=== PATIENT | female | born 1940 | race Caucasian/White ===

== ENCOUNTER 2018-02-08 04:43 | Observation (INO) | payer MEDICARE, BC ==
[~2018-02-08] VITALS: Ht 167.6 cm; Wt 75.3 kg
[2018-02-08] VITALS (8 sets, daily range): BP systolic 99–164; BP diastolic 54–91
--- OUTSIDE RECORDS SUMMARY | 2018-02-08 04:45 | XMS REPORT | Clinical Summary ---
Author Author [facility] Organization [facility] Address Unknown Phone Unavailable Care Team Providers Care Mine Wedge Sawyer Name Role Phone Jose Alegre MD PCP Allergies Active Allergy Reactions Severity Noted Date Comments Latex 12/26/2017 Uajymohz-Ktodfwghtp-Kwtnp Rash Low 12/26/2017 yxin Sulfa (Sulfonamide Anaphylaxis High 12/26/2017 Antibiotics) Current Medications Prescription Sig. Disp. Refills Start End Date Status Date ciprofloxacin HCl 11/04/19 Active (CILOXAN) 0.3 % 18 ophthalmic solution isosorbide mononitrate 10/01/19 Active (IMDUR) 30 MG 24 hr 18 tablet DULoxetine (CYMBALTA) 60 Take 60 mg by mouth Active MG capsule daily. prednisoLONE acetate 11/04/19 Active (PRED FORTE) 1 % 18 ophthalmic suspension tiZANidine (ZANAFLEX) 2 10/01/19 Active MG tablet 18 zolpidem (AMBIEN) 10 mg 12/10/19 Active tablet 18 triamcinolone (KENALOG) 11/19/19 Active 0.1 % ointment 18 HYDROcodone-acetaminophen 12/10/19 Active (NORCO) 10-325 mg per 18 tablet hydrOXYzine (ATARAX) 25 12/10/19 Active MG tablet 18 promethazine (PHENERGAN) 11/12/19 Active 25 MG tablet 18 HYDROMET 5-1.5 mg/5 mL 11/03/19 Active syrup 18 ranitidine (ZANTAC) 300 10/01/19 Active MG tablet 18 PROLENSA 0.07 % 1 12/30/19 Active ophthalmic solution 18 Active Problems No known active problems Encounters Date Type Specialty Care Team Description 01/21/2018 [facility] General Surgery Torrey Knapp MD Encounter 01/21/2018 Procedure Pass General Surgery 01/21/2018 Surgery General Surgery Torrey Knapp MD PHACOEMULSIFICATION, CATARACT, WITH IOL IMPLANTATION RIGHT 01/20/2018 Anesthesia General Surgery Hali Bain MD 12/31/2017 Hospital General Surgery Torrey Knapp MD Encounter 12/31/2017 Procedure Pass General Surgery 12/31/2017 Surgery General Surgery Torrey Knapp MD PHACOEMULSIFICATION, CATARACT, WITH IOL IMPLANTATION LEFT EYE 12/30/2017 Anesthesia General Surgery Hali Bain MD after 02/07/2017 Social History Tobacco Use Types Packs/Day Years Used Date Former Smoker 1 30 Quit: 12/27/1987 Smokeless Tobacco: Never Used Alcohol Use Drinks/Week oz/Week Comments No Sex Assigned at Date Recorded Not on file Last Filed Vital Signs Vital Sign Reading Time Taken Blood Pressure 150/82 01/21/2018 9:00 AM CDT Pulse 78 01/21/2018 9:00 AM CDT Temperature 36.6 C (97.9 F) 01/21/2018 8:47 AM CDT Respiratory Rate 16 01/21/2018 8:47 AM CDT Oxygen Saturation 97% 01/21/2018 9:00 AM CDT Inhaled Oxygen - - Concentration Weight 72.9 kg (160 lb 12.8 oz) 01/21/2018 7:49 AM CDT Height 167.6 cm (5' 6") 12/31/2017 7:17 AM CDT Body Mass Index 25.95 01/21/2018 7:49 AM CDT Plan of Treatment Not on file Implants Implanted Type Area Fisheries Inspector Device Expiration Model / Identifier Date Serial / Lot Lens Iol Asprc Asymet Bicnvx Ant Intraocula Left: Eye ROCKY 2021 SN60WF 190 +19.0d 0deg 6x13mm - [id number] - r [employer] / [id number] Implant INC [id number] Implanted: Qty: 1 on 12/31/2017 by Harjinder / Torrey Knapp MD [id number] Lens Iol Asprc Asymet Bicnvx Ant Intraocula Right: Eye ROCKY 2022 SN60WF 230 +23.0d 0deg 6x13mm - [id number] - r [employer] / [id number] Implant INC [id number] Implanted: Qty: 1 on 01/21/2018 by Trisha / Torrey Knapp MD [id number] Procedures Procedure Name Priority Date/Time Associated Diagnosis Comments PHACOEMULSIFICATION, 01/21/2018 Age-related nuclear CATARACT, WITH IOL 8:00 AM CDT cataract of right eye IMPLANTATION RIGHT Special Needs SN60WF + 23.0 PHACOEMULSIFICATION, 12/31/2017 Age-related nuclear CATARACT, WITH IOL 8:20 AM CDT cataract of left eye IMPLANTATION LEFT EYE Special Needs SN60WF +19.0 after 02/07/2017 Results Not on fileafter 02/07/2017 Insurance Payer Benefit Subscriber ID Type Phone Address Plan / Group MEDICARE MEDICARE xxxxxxxxxx Medicare [place], [place] PART A AND B BCBS BCBS xxxxxxxxxxxxxxx PPO CHOICE PPO/HELENE HENDRICKS PPO
[2018-02-08] MEDS ORDERED: PANTOPRAZOLE 40 MG 10ML VIAL IV STA (04:57)
[2018-02-08] MEDS ORDERED: SODIUM CHLORIDE 0.9% 500ML 500 ML IV ONE (05:00)
[2018-02-08 05:10] LABS: BASOPHILS # (AUTO) 0.1 (0.0-0.1); BASOPHILS % 0.5 % (0.0-1.0); EOSINOPHILS # (AUTO) 0.2 (0.0-0.4); EOSINOPHILS % 1.4 % (0.0-6.0); HEMATOCRIT 33.7 % (34.2-44.1); HEMOGLOBIN 10.8 g/dL (12.0-16.0); LYMPHOCYTES # (AUTO) 2.1 (1.0-3.2); LYMPHOCYTES % 16.4 % (18.0-39.1); MEAN CORPUSCULAR HEMOGLOBIN 28.1 pg (28-32); MEAN CORPUSCULAR VOLUME 87.8 fL (81-99); MONOCYTES # (AUTO) 0.7 (0.2-0.8); MONOCYTES % 5.2 % (4.4-11.3); NEUTROPHILS # (AUTO) 9.6 (2.1-6.9); NEUTROPHILS % 75.8 % (38.7-80.0); PLATELET COUNT 243 x10e3/uL (140-360); RED BLOOD COUNT 3.84 x10e6/uL (3.6-5.1); RED CELL DISTRIBUTION WIDTH 13.2 % (11.7-14.4)
[2018-02-08 05:18] LABS: INR 1.02; PARTIAL THROMBOPLASTIN TIME 26.3 seconds (23.8-35.5); PROTHROMBIN TIME 12.6 seconds (11.9-14.5)
[2018-02-08 05:29] LABS: ALANINE AMINOTRANSFERASE 18 IU/L (0-55); ALBUMIN 3.9 g/dL (3.5-5.0); ALBUMIN/GLOBULIN RATIO 1.1 (0.8-2.0); ALKALINE PHOSPHATASE 114 IU/L (40-150); ANION GAP 15.5 mmol/L (8-16); BLOOD UREA NITROGEN 28 mg/dL (7-26); BUN/CREATININE RATIO 20 (6-25); CALCIUM 9.7 mg/dL (8.4-10.2); CARBON DIOXIDE 25 mmol/L (22-29); CHLORIDE 103 mmol/L (98-107); CREATINE KINASE 67 IU/L (29-168); CREATININE, SERUM 1.41 mg/dL (0.57-1.11); EST GLOMERULAR FILTRATION RATE 36 ML/MIN (60-); GLUCOSE 141 mg/dL (74-118); POTASSIUM 4.5 mmol/L (3.5-5.1); SODIUM 139 mmol/L (136-145)
[2018-02-08 05:49] LABS: THYROID STIMULATING HORMONE 1.076 uIU/mL (0.350-4.940)
[2018-02-08] MEDS ORDERED: TETANUS/DIPHTHERIA TOX ADULT 0.5 ML SYR ONE (06:16)
--- NOTE | 2018-02-08 06:22 | Diagnostic Imaging Report ---
Examination: CT head without contrast Clinical Indication: Fall; head injury.. Technique: Transaxial noncontrast images from the skull base through the vertex were obtained. Sagittal and coronal reformatted images were done. Comparison: None. Findings: Scalp: No abnormalities. Bones: Intact. No fractures. No blastic or lytic lesions. Brain sulci: Appropriate for patient's age. Ventricles: Normal in size and configuration. No hydrocephalus. . Extra-axial space: No abnormalities. Parenchyma: There are mild confluent areas of low-attenuation within subcortical and periventricular white matter, nonspecific, but could represent microvascular ischemic disease. No masses, hemorrhage, or acute or chronic cortical based vascular insults. Suprasellar region: No abnormalities. Craniocervical junction: The foramen magnum is patent. No Chiari one malformation. Incidental findings: Atherosclerotic calcification of the cavernous and supraclinoid internal carotid arteries. Impression: 1. No acute intracranial finding. 2. Mild chronic microvascular ischemic change. Signed by: Dr. Iman Armstrong M.D. on 02/08/2018 6:18 AM
--- NOTE | 2018-02-08 06:23 | Diagnostic Imaging Report ---
Examination: CT CERVICAL SPINE WITHOUT CONTRAST HISTORY:Neck pain. Fall. COMPARISON:None. TECHNIQUE: Multidetector helical axial images were obtained without contrast from the foramen magnum to T1. Coronal and sagittal reformatted images were done. Bone and soft tissue windows were evaluated. FINDINGS: Alignment:Normal alignment and lordosis. Vertebrae: Normal height and density. No acute fracture, infection or neoplasm. Disc space heights: Normal height. Caliber of spinal canal: Developmentally normal. Posterior fossa and craniocervical junction: Foramen magnum patent. No Chiari 1 malformation. Soft tissues: No abnormality. Degenerative changes: Diffuse disc osteophyte complexes at C5-C6 and C6-C7 without canal stenosis. IMPRESSION: No acute abnormalities. Signed by: Dr. Iman Armstrong M.D. on 02/08/2018 6:20 AM
--- NOTE | 2018-02-08 06:23 | Diagnostic Imaging Report ---
PELVIS AP 1-2 VIEWS Comparison: None Clinical history: Fall Findings: No acute fracture or dislocation. Multiple clips which may be related to a hernia repair overlying the lower abdomen. Impression: No acute bony abnormality Signed by: Dr Leanna Mclean MD on 02/08/2018 6:19 AM
--- NOTE | 2018-02-08 06:25 | Diagnostic Imaging Report ---
CHEST SINGLE (PORTABLE), 02/08/2018 4:57 AM Technique: CHEST SINGLE (PORTABLE) Comparison: None available. Clinical history: Fall Findings: Limited by over penetration and portable technique. Normal cardiomediastinal silhouette. Indeterminate 4 cm nodular opacity projects over the left lower lung. No pleural effusion or pneumothorax. No acute displaced fracture. Multiple clips overlie the upper abdomen/lower hemithorax. Impression: Limited by portable technique and overpenetration Indeterminate nodular opacity over the left lower lobe. Recommend follow-up upright PA and lateral. Signed by: Dr Leanna Mclean MD on 02/08/2018 6:22 AM
[2018-02-08] MEDS ORDERED: TETANUS/DIPHTHERIA TOX ADULT 0.5 ML SYR IM ONE (06:30)
[2018-02-08] MEDS ORDERED: LIDOCAINE 1% W/EPINEPHRINE 20 ML VIAL INJ ONE (06:30)
[2018-02-08] MEDS ORDERED: SODIUM CHLORIDE 0.9% 1000ML 1,000 ML IV SCH (06:45)
[2018-02-08] MEDS ORDERED: PROMETHAZINE HC25 M1 PO (06:45)
[2018-02-08] MEDS ORDERED: ZOLPIDEM TARTRA10 MG PO (06:45)
[2018-02-08] MEDS ORDERED: HYDROCODON-ACE1 EAC9 PO (06:45)
[2018-02-08] MEDS ORDERED: ONDANSETRON HCL 4 MG ORAL DISINTEGRATING TAB PO PRN (06:45)
[2018-02-08] MEDS ORDERED: CYMBALTA60 MG PO (06:45)
[2018-02-08] MEDS ORDERED: ISOSORBIDE MONO30 MG PO (06:45)
[2018-02-08] MEDS ORDERED: RANITIDINE HCL300 MG PO (06:45)
[2018-02-08] MEDS ORDERED: HYDROXYZINE HCL25 MG PO (06:45)
[2018-02-08] MEDS ORDERED: TIZANIDINE HCL2 MG PO (06:45)
--- OUTSIDE RECORDS SUMMARY | 2018-02-08 06:54 | XMS REPORT ---
[facility] Address Unknown Phone Unavailable Care Team Providers Care Therapeutic Support Staff Name Role Phone ADAMA CARRIZALES Unavailable Unavailable Problems This patient has no known problems. Allergies, Adverse Reactions, Alerts This patient has no known allergies or adverse reactions. Medications This patient has no known medications. Results Test Description Test Time Test Comments Text Results Atomic Results Result Comments CT BRAIN WO [place] [address] Patient Name: ELOISE LAGUNAS MR #: [id number] : 1940 Age/Sex: 77/F Req #: [id number] Adm Physician: Ordered by: ADAMA CARRIZALES MD Report #: [id number] Location: ER Room/Bed: Procedure: [id number] CT/CT BRAIN WO Exam Date: 02/08/18 Exam Time: 0515 REPORT STATUS: Signed Examination: CT head without contrast Clinical Indication: Fall; head injury.. Technique: Transaxial noncontrast images from the skull base through the vertex were obtained. Sagittal and coronal reformatted images were done. Comparison: None. Findings: Scalp: No abnormalities. Bones: Intact. No fractures. No blastic or lytic lesions. Brain sulci: Appropriate for patient's age. Ventricles: Normal in size and configuration. No hydrocephalus. . Extra-axial space: No abnormalities. Parenchyma: There are mild confluent areas of low- attenuation within subcortical and periventricular white matter, nonspecific, but could represent microvascular ischemic disease. No masses, hemorrhage, or acute or chronic cortical based vascular insults. Suprasellar region: No abnormalities. Craniocervical junction: The foramen magnum is patent. No Chiari one malformation. Incidental findings: Atherosclerotic calcification of the cavernous and supraclinoid internal carotid arteries. Impression: 1. No acute intracranial finding. 2. Mild chronic microvascular ischemic change. Signed by: Dr. Iman Armstrong M.D. on 02/08 6:18 AM Dictated By: IMAN LOUISE MD 7 Transcribed By: ORA on 02/08/18617 COPY TO: ADAMA CARRIZALES MD PELVIS AP 1-2 VIEWS [place] [address] Patient Name: ELOISE LAGUNAS MR #: [id number] : 1940 Age/Sex: 77/F Req # : [id number] Adm Physician: Ordered by: ADAMA CARRIZALES MD Report #: [id number] Location: ER Room/Bed: Procedure: [id number] DX/PELVIS AP 1-2 VIEWS Exam Date: 02/08/18 Exam Time : 0535 REPORT STATUS: Signed PELVIS AP 1-2 VIEWS Comparison: None Clinical history: Fall Findings: No acute fracture or dislocation. Multiple clips which may be related to a hernia repair overlying the lower abdomen. Impression: No acute bony abnormality Signed by: Dr Michael Mclean MD on 02/08/2018 6:19 AM Dictated By: MICHAEL MCLEAN MD 8 Transcribed By: ORA on 02/08/18618 COPY TO: ADAMA CARRIZALES MD CT CERVICAL SPINE WO [place] [address] Patient Name: ELOISE LAGUNAS MR #: [id number] : 1940 Age/Sex: 77/F Req # : [id number] Adm Physician: Ordered by: ADAMA CARRIZALES MD Report #: [id number] Location: ER Room/Bed: Procedure: [id number] CT/CT CERVICAL SPINE WO Exam Date: 02/08/18 Exam Time: 15 REPORT STATUS: Signed Examination: CT CERVICAL SPINE WITHOUT CONTRAST HISTORY:Neck pain. Fall. COMPARISON:None. TECHNIQUE: Multidetector helical axial images were obtained without contrast from the foramen magnum to T1. Coronal and sagittal reformatted images were done. Bone and soft tissue windows were evaluated. FINDINGS: Alignment: Normal alignment and lordosis. Vertebrae: Normal height and density. No acute fracture, infection or neoplasm. Disc space heights: Normal height. Caliber of spinal canal: Developmentally normal. Posterior fossa and craniocervical junction: Foramen magnum patent. No Chiari 1 malformation. Soft tissues: No abnormality. Degenerative changes: Diffuse disc osteophyte complexes at C5-C6 and C6-C7 without canal stenosis. IMPRESSION : No acute abnormalities. Signed by: Dr. Iman Armstrong M.D. on 2017 6:20 AM Dictated By: IMAN LOUISE MD 9 Transcribed By: ORA on 02/08/18619 COPY TO: ADAMA CARRIZALES MD CHEST SINGLE (PORTABLE) [place] [address] Patient Name: ELOISE LAGUNAS MR #: [id number] : 1940 Age/Sex: 77/F Req #: [id number] Adm Physician: Ordered by: ADAMA CARRIZALES MD Report #: [id number] Location: ER Room/Bed: Procedure: [id number] DX/CHEST SINGLE (PORTABLE) Exam Date: 02/08/18 Exam Time: 0535 REPORT STATUS: Signed CHEST SINGLE ( PORTABLE), 02/08/2018 4:57 AM Technique: CHEST SINGLE (PORTABLE) Comparison : None available. Clinical history: Fall Findings: Limited by over penetration and portable technique. Normal cardiomediastinal silhouette. Indeterminate 4 cm nodular opacity projects over the left lower lung. No pleural effusion or pneumothorax. No acute displaced fracture. Multiple clips overlie the upper abdomen/lower hemithorax. Impression: Limited by portable technique and overpenetration Indeterminate nodular opacity over the left lower lobe. Recommend follow-up upright PA and lateral. Signed by: Dr Michael Mclean MD on 02/08/2018 6:22 AM Dictated By: MICHAEL MCLEAN MD 1 Transcribed By : ORA on 02/08/18621 COPY TO: ADAMA CARRIZALES MD
--- OUTSIDE RECORDS SUMMARY | 2018-02-08 06:54 | XMS REPORT | Clinical Summary ---
Author Author [facility] Organization [facility] Address Unknown Phone Unavailable Care Team Providers Care Irrigator Valve Pipe Name Role Phone Jose Alegre MD PCP Allergies Active Allergy Reactions Severity Noted Date Comments Latex 12/26/2017 Pkckvozi-Zjgjininfh-Dcpsk Rash Low 12/26/2017 yxin Sulfa (Sulfonamide Anaphylaxis [...] Date Type Specialty Care Team Description 01/21/2018 [facility] General Surgery Torrey Knapp MD Encounter 01/21/2018 [...] Not on file Implants Implanted Type Area Police Captain Precinct Device Expiration Model / Identifier Date Serial / Lot Lens Iol Asprc Asymet Bicnvx Ant Intraocula Left: Eye ROCKY 2021 SN60WF 190 +19.0d 0deg 6x13mm - [id number] - r [employer] / [id number] Implant INC [id number] Implanted: Qty: 1 on 12/31/2017 by Harjinder / Torrey Knapp MD [id number] Lens Iol Asprc Asymet Bicnvx Ant Intraocula Right: Eye ROCKY 2022 SN60WF 230 +23.0d 0deg 6x13mm - [id number] - r [employer] / [id number] Implant INC [id number] Implanted: Qty: 1 on 01/21/2018 by Trisha / Torrey Knapp MD [id number] Procedures Procedure Name Priority Date/Time Associated [...] Plan / Group MEDICARE MEDICARE xxxxxxxxxx Medicare [place], [place] PART A AND B BCBS BCBS xxxxxxxxxxxxxxx PPO CHOICE PPO/HELENE HENDRICKS PPO
[2018-02-08 07:27] LABS: BILIRUBIN,URINE NEGATIVE (NEGATIVE); CLARITY,URINE CLEAR (CLEAR); COLOR,URINE YELLOW (YELLOW); KETONES,URINE NEGATIVE (NEGATIVE); LEUKOCYTE ESTERASE ,URINE NEGATIVE (NEGATIVE); NITRITE,URINE NEGATIVE (NEGATIVE); PROTEIN,URINE DIPSTICK NEGATIVE (NEGATIVE); URINE UROBILINOGEN 0.2 mg/dL (0.2 - 1)
[2018-02-08 07:28] LABS: EPITHELIAL CELLS,URINE FEW /LPF; RBC,URINE 0-5 /HPF (0-5)
[2018-02-08] MEDS: ISOSORBIDE MONONITRATE 30 MG TAB CR PO SCH (11:00)
[2018-02-08] MEDS ORDERED: NON-FORMULARY MEDICATION (Ranitidine Hcl 300 MG) PO SCH (11:00)
[2018-02-08] MEDS: HYDROXYZINE HCL 25 MG TAB PO SCH ×3 (11:53→20:17)
[2018-02-08] MEDS: HYDROCODONE/APAP 10MG-325MG TAB PO PRN ×2 (11:57→18:14)
[2018-02-08] MEDS: PROMETHAZINE HCL 25 MG TAB PO PRN ×2 (11:57→18:14)
--- NOTE | 2018-02-08 12:18 | Diagnostic Imaging Report ---
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 Absence of intravenous contrast decreases sensitivity for detection of lymphadenopathy and vascular pathology. Coronal and sagittal reformations were obtained. Routine protocol was performed. IV CONTRAST: None COMPLICATIONS: None RADIATION DOSE: Total DLP: 500 mGy*cm Estimated effective dose: (DLP x 0.015 x size factor) mSv CTDIvol has been reviewed. It is below the limits set by the Radiation Protocol Committee (RPC). FINDINGS: LINES/ TUBES: None. LUNGS AND AIRWAYS: Mild central bilateral bronchiectasis. Triangular-shaped soft tissue density within the lingula likely related to partial segmental collapse. There are no endobronchial lesions on limited evaluation, however there is peribronchial wall thickening in the subsegmental branches proximal to the atelectasis. No suspicious pulmonary nodules or masses otherwise in the remaining lungs. PLEURA: The pleural spaces are clear. HEART AND MEDIASTINUM: The thyroid gland is enlarged extending into the anterior mediastinum containing multiple hypodense nodules. No mediastinal, hilar or axillary lymphadenopathy. The heart is normal in size. There is no pericardial effusion. The thoracic aorta is normal in caliber and associated with moderate atherosclerotic calcifications. The main pulmonary artery is normal in caliber, however there is mild enlargement of the right and left pulmonary artery, measuring 2.6 and 2.5 cm respectively. UPPER ABDOMEN: Multiple calcified granulomas in the spleen. BONES: The visualized bony thorax is within normal limits. SOFT TISSUES: Surgical clip within the right breast and anterior lower chest wall. Small fat-containing subxiphoid hernia. IMPRESSION: Partial subsegmental collapse of the lingula with proximal mild bronchiectasis and peribronchial wall thickening. Findings may reflect sequela from prior infection but cannot exclude small endobronchial lesion. Recommend ambulatory consultation with pulmonary service for possible bronchoscopy. Signed by: Dr. Natalie Short M.D. on 02/08/2018 12:14 PM
[2018-02-08 14:51] LABS: CREATINE KINASE 72 IU/L (29-168)
--- NOTE | 2018-02-08 16:04 | History and Physical ---
PCP: Dr. Martin Alegre CHIEF COMPLAINT: Status post fall accidentally, hitting her head and syncopal episode subsequently. HISTORY OF PRESENT ILLNESS: This 77-year-old female got up during the night and went to the bathroom and apparently tripped over and hit her head against the sink. The patient is otherwise stable. She complains of dizziness and headache. She is also complaining of some lower extremity pain. Multiple CTs were done including a CT of the brain without any significant abnormality. No fractures. The patient is otherwise stable. She is ambulatory now. by bedside. Patient's is taking care of the patient at home. PAST MEDICAL HISTORY: Chronic pain, hypertension, fibromyalgia, and osteoarthritis of the spine, lower extremities and hips. PAST SURGICAL HISTORY: Appendectomy, back surgery, cataract surgery, hysterectomy and mastectomy. SOCIAL HISTORY: Patient does not smoke or use alcohol. She lives at home with her family. HOME MEDICATIONS: Hills, Phenergan, Ambien, Cymbalta. ALLERGIES: SULFA, BACITRACIN, LATEX, NEOMYCIN, POLYMYXIN. REVIEW OF SYSTEMS: Nausea, headache, dizziness. No chest pain. No abdominal pain. Bilateral lower extremity pain, hip pain and knee pain. PHYSICAL EXAMINATION VITAL SIGNS: Temperature is 97. Blood pressure 164/86. Pulse rate 105. Respirations 20. GENERAL: The patient is not in any acute distress. HEENT: Normocephalic, atraumatic. Anicteric. There are some bruises. NECK: Supple. No JVD. PULMONARY: Diminished breath sounds without any wheezing. CARDIOVASCULAR: Tachycardia due to pain, but it is sinus. ABDOMEN: Soft, nontender. No distention. EXTREMITIES: No cyanosis or edema. NEURO: The patient is moving all extremities. LABORATORY: WBC is 12.5. Hemoglobin 10.8. Hematocrit 33.7. Platelets 243. Sodium is 139, potassium 4.4, chloride 103, bicarb 25, BUN 28, creatinine 1.4. Glucose 141. Imaging done showed brain CT, cervical spine CT, pelvic x-ray and chest x-ray. The chest x-ray showed indeterminate nodular opacity over the left lower lobe. IMPRESSION 1. Status post accidental fall. She tripped over and hit her head on the sink area. She had a syncopal episode subsequently and was brought to the emergency room. CT scan of the brain showed no bleed. Patient has some symptoms of dizziness and some headache but no visual changes. Some nausea but no vomiting. 2. Possibility of concussion. 3. Slight dehydration. 4. Vague nodule of the lower lung area on the x-ray. PLAN: CT of chest without contrast. Continue to monitor the patient closely. Pain medication and antiemetic. Resume home medications. Patient will be placed in observation overnight. Job#: [id number]
[2018-02-08] MEDS: FAMOTIDINE 20 MG TAB PO SCH (16:30)
[2018-02-08] MEDS: TIZANIDINE HCL 4 MG TAB PO SCH (17:00)
[2018-02-08] MEDS: DULOXETINE HCL 30 MG DELAYED RELEASE PO SCH (20:15)
[2018-02-09] MEDS: HYDROCODONE/APAP 10MG-325MG TAB PO PRN ×2 (01:03→08:40)
[2018-02-09 02:00] VITALS: BP 110/64
[2018-02-09 03:35] LABS: CREATINE KINASE 58 IU/L (29-168)
[2018-02-09 04:00] VITALS: BP 105/67
[2018-02-09 06:01] LABS: BASOPHILS # (AUTO) 0.1 (0.0-0.1); BASOPHILS % 0.7 % (0.0-1.0); EOSINOPHILS # (AUTO) 0.1 (0.0-0.4); EOSINOPHILS % 1.2 % (0.0-6.0); HEMATOCRIT 30.2 % (34.2-44.1); HEMOGLOBIN 9.7 g/dL (12.0-16.0); LYMPHOCYTES # (AUTO) 1.7 (1.0-3.2); LYMPHOCYTES % 22.9 % (18.0-39.1); MEAN CORPUSCULAR HEMOGLOBIN 28.4 pg (28-32); MEAN CORPUSCULAR HGB CONC 32.1 g/dL (31-35); MEAN CORPUSCULAR VOLUME 88.6 fL (81-99); MONOCYTES # (AUTO) 0.5 (0.2-0.8); NEUTROPHILS # (AUTO) 4.9 (2.1-6.9); NEUTROPHILS % 67.9 % (38.7-80.0); PLATELET COUNT 224 x10e3/uL (140-360); RED BLOOD COUNT 3.41 x10e6/uL (3.6-5.1); RED CELL DISTRIBUTION WIDTH 13.1 % (11.7-14.4)
[2018-02-09 06:19] LABS: ANION GAP 10.7 mmol/L (8-16); CALCIUM 9.2 mg/dL (8.4-10.2); CREATININE, SERUM 1.19 mg/dL (0.57-1.11); POTASSIUM 4.7 mmol/L (3.5-5.1)
--- NOTE | 2018-02-09 07:06 | Diagnostic Imaging Report ---
Exam: Head CT without contrast History: Status post fall, scalp laceration Comparison studies: Head CT 02/08/2018 Technique: Axial images were obtained from the skull base to the vertex. Coronal and sagittal images reconstructed from the axial data. Intravenous contrast: None Findings: Scalp: Scalp hematoma with scalp tremayne in place. Bones: No fractures, blastic or lytic lesions. Brain sulci: Mildly prominent. Ventricles: Mild compensatory dilatation.. No hydrocephalus. Extra-axial spaces: No masses, no fluid collection. Parenchyma: No mass, acute hemorrhage or acute cortical vascular insults. A few hypodensities in the supratentorial white matter are nonspecific but most compatible with chronic small vessel ischemic changes. Sellar/suprasellar region: No abnormalities. Craniocervical junction: Patent foramen magnum. No Chiari one malformation. Incidental findings: Atherosclerotic calcifications in the carotid siphons.. IMPRESSION: 1. No acute intracranial abnormalities. Specifically, no acute hemorrhage. 2. Occipital scalp hematoma, now with scalp tremayne in place. No fracture. 3. No other changes from the previous head CT of 02/08/2018. 4. Mild generalized volume loss with mild chronic microvascular ischemic changes. Signed by: Dr. Jose King M.D. on 02/09/2018 7:02 AM
[2018-02-09 08:30] VITALS: BP 108/64
[2018-02-09] MEDS: FAMOTIDINE 20 MG TAB PO SCH (08:50)
[2018-02-09] MEDS: HYDROXYZINE HCL 25 MG TAB PO SCH (09:00)
[2018-02-09] MEDS: ISOSORBIDE MONONITRATE 30 MG TAB CR PO SCH (09:00)
[2018-02-09] MEDS: TIZANIDINE HCL 4 MG TAB PO SCH (09:00)
[2018-02-09] MEDS: DULOXETINE HCL 30 MG DELAYED RELEASE PO SCH (09:12)
--- NOTE | 2018-02-09 15:40 | Discharge Summary ---
The patient was admitted to observation. PCP: Dr. Martin Alegre FINAL DIAGNOSES 1. Status post accidental fall with occipital scalp hematoma with scalp tremayne in place. The patient apparently got up to go to the bathroom during the night, and she fell over and hit her head. 2. CT chest showed subsegmental collapse of the lingula and possible mild bronchiectasis and bronchial wall thickening. No known obvious mass. Recommendation for the patient to follow up with pulmonology service. SUMMARY: Patient is a 77-year-old female who basically got up from her bed during the night and went to the bathroom and fell over and hit her head. She suffered an occipital scalp hematoma. The patient had a laceration. The laceration was repaired. Repeated CT scan showed no bleed. Patient has some density on the chest x-ray and follow up with a CT scan of the chest. The was some vague sequelae in the lingular area. Patient is stable. Imaging results were given to the patient's spouse, Mr. Martin. She will need to follow up as an outpatient with a buffing wheel former automatic for possible bronchoscopy in the future. Otherwise, the patient is stable. I gave the patient Keflex 500 mg 3 times a day for 7 days. She will follow up with her family doctor for staple removal in approximately 1 week. Job#: [id number]
== END 2018-02-09 10:29 | disposition home or self-care (01) ==
LOC: ER 04:43 → IMCU 06:52
PROVIDERS: ADMIT Internal Medicine; ATTEND Internal Medicine
DX: S01.01XA Laceration without foreign body of scalp, initial encounter (principal); R55 Syncope and collapse; E86.0 Dehydration; R42 Dizziness and giddiness; R51 Headache; W01.198A Fall on same level from slipping, tripping and stumbling with subsequent striking against other object, initial encounter; Y93.01 Activity, walking, marching and hiking; Y92.012 Bathroom of single-family (private) house as the place of occurrence of the external cause
CPT/HCPCS: 12001; 36415; 70450 ×2; 71045; 71250; 72125; 72170; 80048; 80053; 81001; 82550 ×2; 82553 ×2; 83735; 84443; 84484 ×2; 85025 ×2; 85610; 85730; 87086; 90471; 90714; 93005; 96374; 99284; G0378 ×2; J7030; J7040; J3410